=== PATIENT | male | born 2000 | race Caucasian/White ===

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

== ENCOUNTER 2018-12-13 11:21 | Emergency (ER) | payer OTHER ==
[~2018-12-13] VITALS: Ht 172.7 cm; Wt 61.2 kg
[2018-12-13 11:21] VITALS: BP_SYST 139
--- NOTE | 2018-12-13 11:21 | NUR ---
Patient triaged and placed in waiting room. VSS and patient appears in no acute distress at this time. Accompanied by MOTHER, awaiting available bed, and MD notified of need for MSE.
--- NOTE | 2018-12-13 11:51 | NUR ---
BROUGHT BACK TO BED #7 AND REPORT GIVEN TO LETITIA
--- NOTE | 2018-12-13 11:58 | NUR ---
DR VILLA AT BEDSIDE FOR EVALUATION
--- NOTE | 2018-12-13 12:02 | NUR ---
MARK Garcia at bedside examining patient.
--- NOTE | 2018-12-13 12:10 | NUR ---
PATIENT CAME IN COMPLAINING OF ABDOMINAL PAIN FOR PAST 2-3 DAYS. PATIENT ALSO COMPLAINING OF NASUEA BUT NO VOMITING. PATIENT STATES LAST BM WAS TODAY BEFORE COMING IN. PATIENT IS ALERT AND ORIENTED X4. PATIENT DENIES SOB.
[2018-12-13] MEDS ORDERED: METOCLOPRAMIDE HCL 10 MG TABLET PO ONE (12:15)
[2018-12-13] MEDS ORDERED: IBUPROFEN 600 MG TABLET PO ONE (12:15)
[2018-12-13 12:42] VITALS: BP_SYST 139
--- NOTE | 2018-12-13 12:42 | NUR ---
Patient given written and verbal discharge instructions and verbalizes understanding. ER MD discussed with patient the results and treatment provided. Patient in stable condition. ID arm band removed. Rx of miralax and naproxen given. Patient educated on pain management and to follow up with PMD. Pain Scale 8/10 TOLERABLE. PATIENT JUST GIVEN PAIN MEDICATION. Opportunity for questions provided and answered. Medication side effect fact sheet provided.
== END 2018-12-13 12:42 | disposition home or self-care (01) ==
LOC: SED 11:21
DX: K59.00 Constipation, unspecified (principal); R51 Headache; F12.90 Cannabis use, unspecified, uncomplicated; R11.2 Nausea with vomiting, unspecified
CPT/HCPCS: 74018; 99283; J8597

== ENCOUNTER 2021-01-04 04:08 | Emergency (ER) | payer OTHER ==
[~2021-01-04] VITALS: Ht 170.2 cm; Wt 72.6 kg
[2021-01-04 04:15] VITALS: BP_SYST 131
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
--- NOTE | 2021-01-04 05:30 | NUR ---
at bedside. CT ordered
[2021-01-04] MEDS ORDERED: NAPR-686 PO (05:59)
--- NOTE | 2021-01-04 06:15 | NUR ---
Pt stable for d/c. CT negative. d/c instructions given with prescription. All questions answered and pt verbalized understanding
[2021-01-04 06:48] VITALS: BP_SYST 131
== END 2021-01-04 06:15 | disposition home or self-care (01) ==
LOC: SED 04:08
DX: S00.03XA Contusion of scalp, initial encounter (principal); F10.129 Alcohol abuse with intoxication, unspecified; Y90.9 Presence of alcohol in blood, level not specified; Y04.0XXA Assault by unarmed brawl or fight, initial encounter; Y93.89 Activity, other specified; Y92.89 Other specified places as the place of occurrence of the external cause; Y99.8 Other external cause status
CPT/HCPCS: 70450-TC; 76376; 99284